=== PATIENT | female | born 1955 | race Caucasian/White ===

== ENCOUNTER 2021-12-14 15:22 | Outpatient (CLI) | payer MEDICARE, OTHER | END 2021-12-14 15:23 | disposition home or self-care (01) | LOC: CSHMAMMO 15:22 | PROVIDERS: ATTEND Obstetrics & Gynecology | DX: Z12.31 Encounter for screening mammogram for malignant neoplasm of breast (principal); Z80.3 Family history of malignant neoplasm of breast | CPT/HCPCS: 77063; 77067 ==

== ENCOUNTER 2021-12-27 16:13 | Outpatient (CLI) | payer MEDICARE, OTHER | END 2021-12-27 16:14 | disposition home or self-care (01) | LOC: CSHLAB 16:13 | PROVIDERS: ATTEND Internal Medicine Gastroenterology | DX: Z20.822 Contact with and (suspected) exposure to COVID-19 (principal); Z12.11 Encounter for screening for malignant neoplasm of colon; Z53.9 Procedure and treatment not carried out, unspecified reason ==

== ENCOUNTER 2021-12-31 06:26 | Day surgery (SDC) | payer MEDICARE, OTHER ==
[2021-12-27 14:30] VITALS: BMI 23.2
[2021-12-31] MEDS ORDERED: PROPOFOL 20 ML ONE ×3 (08:11→09:24)
== END 2021-12-31 10:10 | disposition home or self-care (01) ==
LOC: CSHSDC 06:26
PROVIDERS: ATTEND Internal Medicine Gastroenterology
PROC: 0DBP8ZZ Excision of Rectum, Via Natural or Artificial Opening Endoscopic (ICD-10-PCS; principal; 2021-12-31)
DX: Z12.11 Encounter for screening for malignant neoplasm of colon (principal); D12.8 Benign neoplasm of rectum; K64.9 Unspecified hemorrhoids; Q43.8 Other specified congenital malformations of intestine; I10 Essential (primary) hypertension; E78.5 Hyperlipidemia, unspecified; Z90.710 Acquired absence of both cervix and uterus
CPT/HCPCS: 88305; J2704

== ENCOUNTER 2022-12-16 14:53 | Outpatient (CLI) | payer MEDICARE, OTHER | END 2022-12-16 14:54 | disposition home or self-care (01) | LOC: CSHMAMMO 14:53 | PROVIDERS: ATTEND Obstetrics & Gynecology | DX: Z12.31 Encounter for screening mammogram for malignant neoplasm of breast (principal); Z13.820 Encounter for screening for osteoporosis; M81.0 Age-related osteoporosis without current pathological fracture; E28.39 Other primary ovarian failure; M85.89 Other specified disorders of bone density and structure, multiple sites; Z80.3 Family history of malignant neoplasm of breast | CPT/HCPCS: 77063; 77067; 77080 ==

== ENCOUNTER 2024-05-15 15:23 | Inpatient (IN) | payer OTHER ==
[~2024-05-15 15:23] MED LIST: Iopamidol 370 76% 100 ML VIAL ONE
[2024-05-15] MEDS ORDERED: methylPREDNISolone Sod Succ/PF 125 MG/2 ML VIAL ONE (15:56)
[2024-05-15] MEDS ORDERED: Ipratropium/Albuterol 3 ML NEB ONE (16:48)
[2024-05-15 17:35] LABS: #Basophils 0.02 10x3/uL (0.0-0.2); #Eosinophils 0.01 10x3/uL (0.0-0.5); #Monocytes 1.73 10x3/uL (0.0-1.1); #Neutrophils 14.06 10x3/uL (1.5-8.4); %Basophils 0.1 % (0.0-2.0); %Eosinophils 0.1 % (0.0-6.0); %Lymphocytes 8.6 % (18.0-47.0); %Monocytes 9.9 % (0.0-10.0); %Neutrophils 80.7 % (40.0-75.0); Hematocrit 32.5 % (34.9-44.5); Hemoglobin 10.8 g/dL (12.0-15.5); Mean Corpuscular HGB CONC 33.2 g/dL (32.0-36.0); Mean Corpuscular Hemoglobin 31.2 pg (27.0-33.0); Mean Corpuscular Volume 93.9 fL (81.6-98.3); Mean Platelet Volume 9.4 fL (7.4-10.4); Platelet Count 438 10x3/uL (150-450); RBC Distribution Width 12.1 % (11.5-14.5); Red Blood Cell (RBC) Count 3.46 10x6/uL (3.90-5.03); White Blood Cell (WBC) Count 17.4 10x3/uL (3.5-10.5)
[2024-05-15 17:44] LABS: Anion Gap 18 mmol/L (10-20); BUN (Urea Nitrogen) 10 mg/dL (9.8-20.1); Calc. Creatinine Clearance 0 mL/min (70-130); Calcium 9.1 mg/dL (7.8-10.44); Carbon Dioxide 21 mmol/L (23-31); Chloride 98 mmol/L (98-107); Estimated GFR 81; Glucose 117 mg/dL (80-115); Potassium 4.4 mmol/L (3.5-5.1); Sodium 133 mmol/L (136-145)
[2024-05-15] MEDS ORDERED: cefTRIAXone (ROCEPHIN) 2 GM VIAL ONE (19:02)
[2024-05-15] MEDS ORDERED: Azithromycin 500 MG VIAL ONE (19:54)
[2024-05-15 22:37] VITALS: BMI 23.0
[2024-05-15] MEDS ORDERED: Albuterol 2.5 MG (3 mL) NEB NEB PRN (22:55)
[2024-05-15] MEDS ORDERED: Milk Of Magnesia 30 ML UDCUP PO PRN (22:55)
[2024-05-15] MEDS ORDERED: Acetaminophen 325 MG TAB PO PRN (22:55)
[2024-05-15] MEDS ORDERED: Sodium Chloride 0.65% Nasal 44 ML BOT EA NARE PRN (23:04)
[2024-05-16 04:35] LABS: #Basophils 0.01 10x3/uL (0.0-0.2); #Monocytes 0.57 10x3/uL (0.0-1.1); #Neutrophils 17.99 10x3/uL (1.5-8.4); %Basophils 0.1 % (0.0-2.0); %Monocytes 2.9 % (0.0-10.0); %Neutrophils 92.4 % (40.0-75.0); Hemoglobin 10.3 g/dL (12.0-15.5); Mean Corpuscular HGB CONC 33.2 g/dL (32.0-36.0); Mean Corpuscular Hemoglobin 31.1 pg (27.0-33.0); Mean Corpuscular Volume 93.7 fL (81.6-98.3); Platelet Count 471 10x3/uL (150-450); Red Blood Cell (RBC) Count 3.31 10x6/uL (3.90-5.03); White Blood Cell (WBC) Count 19.5 10x3/uL (3.5-10.5)
[2024-05-16 04:47] LABS: Anion Gap 15 mmol/L (10-20); BUN (Urea Nitrogen) 9 mg/dL (9.8-20.1); Calc. Creatinine Clearance 60 mL/min (70-130); Carbon Dioxide 24 mmol/L (23-31); Chloride 101 mmol/L (98-107); Estimated GFR 81; Glucose 175 mg/dL (80-115); Magnesium 2.3 mg/dL (1.6-2.6); Sodium 135 mmol/L (136-145)
[2024-05-16] MEDS: Losartan 50 MG TAB PO SCH (08:55)
[2024-05-16] MEDS: Enoxaparin 40 MG (0.4 mL) SYRINGE SC SCH (08:55)
[2024-05-16] MEDS: Calcium Carbonate 600 MG + Vit D TAB PO SCH (08:55)
[2024-05-16] MEDS: Magnesium Oxide 250 MG TAB PO SCH (08:55)
[2024-05-16] MEDS: guaiFENesin ER 600 MG TAB PO SCH (08:55)
[2024-05-16] MEDS: Estradiol 1 MG TAB PO SCH (08:55)
[2024-05-16] MEDS: Fish Oil 1,000 MG CAP PO SCH (08:55)
[2024-05-16] MEDS: Multivitamin W/ Minerals 1 TAB PO SCH (08:55)
[2024-05-16] MEDS: Benzonatate 100 MG CAP PO PRN (09:02)
[2024-05-16] MEDS ORDERED: Senokot 8.6 MG TAB PO PRN (10:44)
[2024-05-16] MEDS ORDERED: Benzocaine/Menthol 1 LOZ LOZ PO PRN (10:45)
[2024-05-16] MEDS: cefTRIAXone\\ROCEPHIN 2 GM in Sodium Chloride 0.9% 100 ML IVPB SCH (18:07)
[2024-05-16] MEDS: Budesonide 0.5 MG/2 ML NEB INH SCH (19:05)
[2024-05-16] MEDS: Azithromycin 500 MG in Sodium Chloride 0.9% 250 ML 250 ML IVPB SCH (20:15)
[2024-05-16] MEDS ORDERED: guaiFENesin ER 600 MG TAB PO SCH (21:00)
[2024-05-16] MEDS: Saccharomyces boulardii 250 MG CAP PO SCH (21:21)
[2024-05-17 04:41] LABS: #Basophils 0.02 10x3/uL (0.0-0.2); #Eosinophils 0.03 10x3/uL (0.0-0.5); #Monocytes 1.51 10x3/uL (0.0-1.1); %Basophils 0.1 % (0.0-2.0); %Eosinophils 0.1 % (0.0-6.0); %Lymphocytes 8.9 % (18.0-47.0); %Monocytes 7.5 % (0.0-10.0); %Neutrophils 82.4 % (40.0-75.0); Hematocrit 28.7 % (34.9-44.5); Mean Corpuscular HGB CONC 34.8 g/dL (32.0-36.0); Mean Corpuscular Hemoglobin 32.5 pg (27.0-33.0); Mean Corpuscular Volume 93.2 fL (81.6-98.3); Mean Platelet Volume 9.2 fL (7.4-10.4); Platelet Count 533 10x3/uL (150-450); RBC Distribution Width 12.2 % (11.5-14.5); Red Blood Cell (RBC) Count 3.08 10x6/uL (3.90-5.03); White Blood Cell (WBC) Count 20.1 10x3/uL (3.5-10.5)
[2024-05-17 05:01] LABS: Anion Gap 14 mmol/L (10-20); BUN (Urea Nitrogen) 16 mg/dL (9.8-20.1); Calc. Creatinine Clearance 57 mL/min (70-130); Calcium 8.7 mg/dL (7.8-10.44); Carbon Dioxide 25 mmol/L (23-31); Chloride 102 mmol/L (98-107); Estimated GFR 77; Glucose 98 mg/dL (80-115); Sodium 136 mmol/L (136-145)
[2024-05-17 05:02] LABS: Magnesium 2.3 mg/dL (1.6-2.6)
[2024-05-17] MEDS: Ipratropium/Albuterol 3 ML NEB NEB PRN (07:20)
[2024-05-17] MEDS ORDERED: guaiFENesin ER 600 MG TAB PO PRN (09:11)
[2024-05-17] MEDS: Benzonatate 100 MG CAP PO SCH (16:40)
[2024-05-18 04:21] LABS: #Basophils 0.02 10x3/uL (0.0-0.2); #Eosinophils 0.03 10x3/uL (0.0-0.5); #Monocytes 1.24 10x3/uL (0.0-1.1); #Neutrophils 8.37 10x3/uL (1.5-8.4); %Basophils 0.2 % (0.0-2.0); %Eosinophils 0.3 % (0.0-6.0); %Lymphocytes 12.2 % (18.0-47.0); %Monocytes 11.2 % (0.0-10.0); %Neutrophils 75.2 % (40.0-75.0); Hemoglobin 9.8 g/dL (12.0-15.5); Mean Corpuscular Hemoglobin 32.7 pg (27.0-33.0); Mean Corpuscular Volume 93.3 fL (81.6-98.3); Mean Platelet Volume 8.9 fL (7.4-10.4); Platelet Count 531 10x3/uL (150-450); RBC Distribution Width 12.1 % (11.5-14.5); White Blood Cell (WBC) Count 11.1 10x3/uL (3.5-10.5)
[2024-05-18 04:34] LABS: Anion Gap 11 mmol/L (10-20); BUN (Urea Nitrogen) 11 mg/dL (9.8-20.1); Calc. Creatinine Clearance 63 mL/min (70-130); Calcium 8.3 mg/dL (7.8-10.44); Carbon Dioxide 23 mmol/L (23-31); Chloride 106 mmol/L (98-107); Estimated GFR 86; Glucose 94 mg/dL (80-115); Potassium 4.3 mmol/L (3.5-5.1); Sodium 136 mmol/L (136-145)
[2024-05-18 12:39] VITALS: BP 110/62; TEMP 98.2
== END 2024-05-18 13:52 | disposition home or self-care (01) | DRG 871 ==
LOC: CSHERS 15:23 → CSHTELE 19:24
PROVIDERS: ADMIT Family Medicine; ATTEND Hospitalist
DX: A41.89 Other specified sepsis (principal); J18.9 Pneumonia, unspecified organism; J96.01 Acute respiratory failure with hypoxia; E87.20 Acidosis, unspecified; E87.1 Hypo-osmolality and hyponatremia; I10 Essential (primary) hypertension; D64.9 Anemia, unspecified; D63.1 Anemia in chronic kidney disease; N18.2 Chronic kidney disease, stage 2 (mild); Z90.710 Acquired absence of both cervix and uterus; Z79.899 Other long term (current) drug therapy
CPT/HCPCS: 36415; 71046; 71275; 80048; 83605; 83735; 84145; 85025; 87040; 87070; 87081; 87205; 87633; 94640; 96365; 96367; 96375; J0456; J0696; J1650; J2919; J7050; J7620; J7626; Q9967

== ENCOUNTER 2024-12-20 14:45 | Outpatient (CLI) | payer OTHER | END 2024-12-20 14:46 | disposition home or self-care (01) | LOC: CSHMAMMO 14:45 | PROVIDERS: ATTEND Obstetrics & Gynecology | DX: Z12.31 Encounter for screening mammogram for malignant neoplasm of breast (principal); M85.851 Other specified disorders of bone density and structure, right thigh; M85.852 Other specified disorders of bone density and structure, left thigh; Z80.3 Family history of malignant neoplasm of breast | CPT/HCPCS: 77063; 77067; 77080 ==